=== PATIENT | male | born 1990 | race African-American/Black ===

== ENCOUNTER 2018-05-03 09:55 | Emergency (ER) | payer OTHER ==
[~2018-05-03] VITALS: Ht 188 cm; Wt 120.2 kg
[2018-05-03] MEDS ORDERED: KETOROLAC TROMETHAMINE 60 MG/2 ML VIAL IM ONE (10:15)
--- NOTE | 2018-05-03 10:51 | Diagnostic Imaging Report ---
EXAM: SHOULDER RIGHT COMPLETE DATE: 05/03/2018 10:02 AM INDICATION: \S\trauma \[id number] \[id number] trauma COMPARISON: None FINDINGS: No acute fracture or subluxation. Visualized lung clear. IMPRESSION: No acute findings. Signed by: Dr. Ramón Rodas MD on 05/03/2018 10:48 AM
--- NOTE | 2018-05-03 10:52 | Diagnostic Imaging Report ---
EXAM: XR CHEST 2 VIEWS DATE: 05/03/2018 10:02 AM INDICATION: Trauma COMPARISON: None FINDINGS: Lines and Tubes: None Heart and Mediastinum: No acute cardiomediastinal findings. Lungs and Pleura: No significant pleural effusion, pneumothorax, or focal consolidation. Bones and Soft Tissues: No acute findings. Shoulders partially excluded. IMPRESSION: 1. No acute cardiopulmonary findings. Signed by: Dr. Ramón Rodas MD on 05/03/2018 10:49 AM
[2018-05-03 11:31] VITALS: BP 147/103
== END 2018-05-03 11:32 | disposition home or self-care (01) ==
LOC: ER 09:55
DX: S40.011A Contusion of right shoulder, initial encounter (principal); M25.511 Pain in right shoulder; W22.8XXA Striking against or struck by other objects, initial encounter; Y99.0 Civilian activity done for income or pay
CPT/HCPCS: 71046; 73030; 99284; J1885